=== PATIENT | male | born 1970 | race Two or more races ===

== ENCOUNTER 2019-04-12 07:46 | Inpatient (IN) | payer OTHER ==
[~2019-04-12] VITALS: Ht 167.6 cm; Wt 90.7 kg
[2019-04-12] VITALS (17 sets, daily range): BP systolic 110–157; BP diastolic 64–105
[2019-04-12] MEDS ORDERED: IV NS 0.9% 1,000 ML BAG IV ONE (08:00)
[2019-04-12 08:10] LABS: BASOPHILS % (AUTO) 0.4 % (0.0-2.0); EOSINOPHILS % (AUTO) 0.1 % (0.0-6.0); HEMATOCRIT 51 % (39-51); HEMOGLOBIN 17.9 g/dL (13.5-17.5); LYMPHOCYTES # (AUTO) 1.2 /CMM (0.8-4.8); LYMPHOCYTES % (AUTO) 14.5 % (20.0-44.0); MEAN CORPUSCULAR HGB CONC 35 g/dl (31.0-36.0); MEAN CORPUSCULAR VOLUME 88 fL (80-96); MONOCYTES # (AUTO) 0.2 /CMM (0.1-1.30); MONOCYTES % (AUTO) 2.5 % (2.0-12.0); NEUTROPHILS # (AUTO) 6.9 /CMM (1.8-8.9); NEUTROPHILS % (AUTO) 82.5 % (43.0-81.0); PLATELET COUNT (AUTO) 234 /CMM (150-450); RED BLOOD CELL COUNT(AUTO) 5.82 MIL/uL (4.5-6.0); WHITE BLOOD COUNT (AUTO) 8.4 K/uL (4.3-11.0)
--- NOTE | 2019-04-12 08:23 | NUR ---
PATIENT AWAKE ALERT NON DISTRESS BS CHECKED DONE AND FILED [employer] @ BEDSIDE FOR OK TO BOOK LAB DRAWS DONE BASIC LAB CONTINUE TO MONITOR
[2019-04-12 09:07] LABS: CALCIUM, SERUM 9.7 mg/dL (8.5-10.1); CARBON DIOXIDE 22 mmol/L (21-32); CHLORIDE 103 mmol/L (98-107); CREATININE 0.8 mg/dL (0.6-1.3); UREA NITROGEN, BLOOD 9 mg/dL (7-18)
[2019-04-12 09:08] LABS: GLUCOSE 359 mg/dL (74-106)
[2019-04-12 09:09] LABS: SODIUM SERUM 142 mmol/L (136-145)
[2019-04-12] MEDS ORDERED: INSULIN REGULAR, HUMAN 100 UNIT/ML 10 ML VIAL ONE (09:17)
[2019-04-12] MEDS ORDERED: IV NS 0.9% 500 ML BAG IV ONE (09:30)
[2019-04-12] MEDS ORDERED: INSULIN REGULAR, HUMAN 100 UNIT/ML 10 ML VIAL IV ONE (09:30)
--- NOTE | 2019-04-12 10:14 | NUR ---
PATIENT AWAKE ALERT NOTED NO NAUSEA AND VOMIT VITALS TAKEN AND FILED MONITOR BS
[2019-04-12 11:02] LABS: POTASSIUM 3.7 mmol/L (3.5-5.1)
[2019-04-12 11:03] LABS: CALCIUM, SERUM 8.4 mg/dL (8.5-10.1); CREATININE 0.7 mg/dL (0.6-1.3)
[2019-04-12 11:57] LABS: ABG BASE EXCESS -3.5 mmol/L; ABG OXYGEN SATURATION 87.6 % (92.0-98.5); ABG PCO2 34.8 mmHg (35.0-45.0); ABG PO2 51.1 mmHg (75.0-100.0); COHb 0.6 % (0.5-1.5); MetHb 0.4 % (0.0-1.5); O2Hb 86.7 % (94.0-97.0); SITE, ABG LEFT ARM; VENT MODE, BG RA
--- NOTE | 2019-04-12 12:02 | NUR ---
REQUESTED ICU BED FOR PT
[2019-04-12] MEDS ORDERED: METF-440 PO (12:12)
--- NOTE | 2019-04-12 12:21 | NUR ---
CALLED [facility], PAGED GEE MARTIN
[2019-04-12] MEDS ORDERED: POTASSIUM CL. PREMIX PERIPHER. 50 ML ONE (12:27)
[2019-04-12] MEDS ORDERED: INSULIN REGULAR, HUMAN 100 UNIT in IV NS 0.9% 99 ML IV PRN ×4 (12:30→14:00)
[2019-04-12] MEDS ORDERED: IV D5W 1,000 ML IV ONE (12:30)
[2019-04-12] MEDS: POTASSIUM CL. PREMIX PERIPHER. 50 ML IV SCH ×2 (12:31→14:28)
--- NOTE | 2019-04-12 12:36 | NUR ---
PATIENT AWAKE ALERT DENIES PAIN NO NAUSEA AND VOMIT ,REQUEST FOR ORAL FLUID OK PER MD
--- NOTE | 2019-04-12 12:42 | NUR ---
ICU 254
[2019-04-12] MEDS ORDERED: IV D5/ 0.9% NACL 1,000 ML IV ONE (13:00)
--- NOTE | 2019-04-12 13:29 | NUR ---
REPORT RECEIVED FROM [facility]
--- NOTE | 2019-04-12 13:33 | NUR ---
PATIENT REMAIN IN INSULIN DRIP 8 UNITS/HR INFUSING WELL NO EDEMA ,NO PAIN
--- NOTE | 2019-04-12 13:50 | NUR ---
GIVEN TO RECHECK BS 222 REPORT GIVEN TO EDINSON CANTU ,
[2019-04-12] MEDS ORDERED: IV D5/ 0.9% NACL 1,000 ML IV PRN (14:00)
[2019-04-12] MEDS ORDERED: HYDROCODONE/APAP 5/325MG 1 EACH TABLET PO PRN (14:00)
[2019-04-12] MEDS ORDERED: Z GUARD REMEDY 2 OZ OINT TP PRN (14:00)
[2019-04-12] MEDS ORDERED: ONDANSETRON HCL/PF 4 MG/2 ML VIAL IVP PRN (14:00)
--- NOTE | 2019-04-12 14:00 | NUR ---
SENIOR CREDIT ANALYST NOTES RECEIVED PATIENT FROM ED IN CUSTODY WITH 2 [employer] OFFICERS. PATIENT A/O X4 TAMAZIGHT SPEAKING UNDERSTANDS EMIRATI. TRANSFER VIA GURNEY WITH ACLS PROTOCOL AMBULATORY TO BED. NO SIGNS OR SYMPTOMS OF RESPIRATORY DISTRESS OR PAIN NOTED.SINUS RHYTHM ON MONITOR VITALS 68615 TEMP 98.1 HR 92 O2 97% ON ROOM AIR WEIGHT 188 LBS. SKIN INTACT NO PHOTOS TAKEN . IV TO RAC # 20 WITH REGULAR INSULIN RUNNING @ 8 UNITS R HAND # 20 GAUGE RUNNING D5NS @ 100 ML/HR AND K+ RUNNING @ 20 ML/HR. GEE MARTIN STUDENT [employer] JUDGE AT BEDSIDE ASSESSING PATIENT . ORIENTED TO ROOM AND CALL SYSTEM. BED IN LOW LOCKED POSITION SIDE RAILS UP X2. WILL CONT TO MONITOR ACCORDINGLY
[2019-04-12 14:45] LABS: CALCIUM, SERUM 8.3 mg/dL (8.5-10.1); CREATININE 0.7 mg/dL (0.6-1.3); MAGNESIUM 1.9 mg/dL (1.8-2.4); PHOSPHORUS 2.8 mg/dL (2.5-4.9); POTASSIUM 3.4 mmol/L (3.5-5.1)
[2019-04-12] MEDS: ENOXAPARIN SODIUM 40 MG/0.4 ML DISP.SYRIN SQ SCH (15:14)
[2019-04-12] MEDS ORDERED: BLOOD SUGAR DIAGNOSTIC 1 EACH STRIP IN ONE (16:00)
[2019-04-12] MEDS ORDERED: INSULIN REGULAR, HUMAN 100 UNIT/ML 3 ML VIAL SQ PRN (16:00)
[2019-04-12] MEDS ORDERED: *INSULIN REGULAR(HUMULIN R)HUM 100 UNIT/ML VIAL SQ PRN (16:00)
[2019-04-12] MEDS ORDERED: DEXTROSE 50%-WATER 50 ML DISP.SYRIN IV PRN (16:00)
--- NOTE | 2019-04-12 16:30 | NUR ---
NEW ORDERS PLACED BY GEE MARTIN D/Prela INSULIN AND D5NS START ON SLIDING SCALE
[2019-04-12] MEDS: BLOOD SUGAR DIAGNOSTIC 1 EACH STRIP VI SCH ×2 (17:47→22:07)
[2019-04-12] MEDS: INSULIN LISPRO/ASPART 100 UNIT/ML CARTRIDGE SQ SCH (17:54)
[2019-04-12 17:58] LABS: CALCIUM, SERUM 8.3 mg/dL (8.5-10.1); CREATININE 0.6 mg/dL (0.6-1.3); PHOSPHORUS 3.2 mg/dL (2.5-4.9); POTASSIUM 3.6 mmol/L (3.5-5.1)
--- NOTE | 2019-04-12 18:47 | NUR ---
NET WEB DEVELOPER NOTES PATIENT SLEEPING A/O X4 NO SIGNS OR SYMPTOMS OF RESPIRATORY DISTRESS SATURATING 98% ON ROOM AIR NO C/O PAIN NOTED . IN CUSTODY WITH [employer] 2 OFFICERS AT BEDSIDE. NORMAL SINUS ON MONITOR SKIN INTACT. IV RAC # 20 GAUGE SL R HAND # 20 GAUGE SL. ABLE TO MAKE NEEDS KNOWN AND ALL MET BY STAFF. SAFETY PRECAUTION IN PLACE BED IN LOW LOCKED POSITION . CALL LIGHT WITHIN REACH WILL ENDORSE TO NOC.
[2019-04-12] MEDS ORDERED: INSULIN GLARGINE, 100 UNIT/ML CARTRIDGE SQ SCH (22:00)
[2019-04-12 22:27] LABS: CALCIUM, SERUM 8.6 mg/dL (8.5-10.1); CREATININE 0.8 mg/dL (0.6-1.3); PHOSPHORUS 3.1 mg/dL (2.5-4.9); POTASSIUM 3.6 mmol/L (3.5-5.1)
[2019-04-13] VITALS (25 sets, daily range): BP systolic 111–153; BP diastolic 64–96
[2019-04-13 04:18] LABS: BASOPHILS % (AUTO) 0.4 % (0.0-2.0); EOSINOPHILS % (AUTO) 1.1 % (0.0-6.0); HEMATOCRIT 44 % (39-51); HEMOGLOBIN 15.5 g/dL (13.5-17.5); LYMPHOCYTES # (AUTO) 2.8 /CMM (0.8-4.8); LYMPHOCYTES % (AUTO) 42.2 % (20.0-44.0); MEAN CORPUSCULAR HGB CONC 35 g/dl (31.0-36.0); MEAN CORPUSCULAR VOLUME 87 fL (80-96); MONOCYTES # (AUTO) 0.4 /CMM (0.1-1.30); MONOCYTES % (AUTO) 6.6 % (2.0-12.0); NEUTROPHILS # (AUTO) 3.3 /CMM (1.8-8.9); NEUTROPHILS % (AUTO) 49.7 % (43.0-81.0); PLATELET COUNT (AUTO) 202 /CMM (150-450); RED BLOOD CELL COUNT(AUTO) 5.05 MIL/uL (4.5-6.0); WHITE BLOOD COUNT (AUTO) 6.6 K/uL (4.3-11.0)
[2019-04-13 04:29] LABS: ALBUMIN 3.3 g/dL (3.4-5.0); BILIRUBIN,TOTAL 0.6 mg/dL (0.2-1.0); CALCIUM, SERUM 8.5 mg/dL (8.5-10.1); CREATININE 0.8 mg/dL (0.6-1.3); PHOSPHORUS 2.7 mg/dL (2.5-4.9); POTASSIUM 3.4 mmol/L (3.5-5.1); TOTAL PROTEIN, SERUM 6.7 g/dL (6.4-8.2)
[2019-04-13 05:07] LABS: THYROID STIMULATING HORMONE 0.898 uIU/mL (0.358-3.74)
--- NOTE | 2019-04-13 07:30 | NUR ---
RN NOTE: RECEIVED PATIENT IN BED, AWAKE, ALERT AND VERBALLY RESPONSIVE. BREATHING EVENLY AND UNLABORED SATURATING 97% IN ROOM AIR. DENIED ANY PAIN. AFEBRILE. SKIN WARM TO TOUCH. HOB ELEVATED. ON SITE PROMOTION AGENT SR HR= 65. (R) AC AND (R) HAND IV SITE NOTED PATENT AND INTACT. BED ALARMED AND LOCKED AT ALL TIMES AND ON LOWEST POSITION. CALL LIGHT WITHIN REACH. NEEDS ANTICIPATED.
[2019-04-13] MEDS: BLOOD SUGAR DIAGNOSTIC 1 EACH STRIP VI SCH ×2 (07:59→11:51)
[2019-04-13] MEDS: INSULIN LISPRO/ASPART 100 UNIT/ML CARTRIDGE SQ SCH ×2 (08:01→11:56)
[2019-04-13] MEDS: ENOXAPARIN SODIUM 40 MG/0.4 ML DISP.SYRIN SQ SCH (09:12)
[2019-04-13] MEDS: POTASSIUM CL. PREMIX PERIPHER. 50 ML IV SCH ×2 (09:32→10:33)
[2019-04-13 09:39] LABS: ABG BASE EXCESS -1.3 mmol/L; ABG OXYGEN SATURATION 94.5 % (92.0-98.5); ABG PCO2 34.9 mmHg (35.0-45.0); ABG PH 7.425 (7.350-7.450); ABG PO2 71.5 mmHg (75.0-100.0); AaDO2 36.4 mmHg; COHb 1.1 % (0.5-1.5); MetHb 0.5 % (0.0-1.5); SITE, ABG Left Radial; VENT MODE, BG ROOM AIR
--- NOTE | 2019-04-13 11:18 | NUR ---
RN NOTE: SEEN AND EXAMINED BY DR. CEJA AND PER MD, PATIENT CAN BE DISCHARGE TO HOME TODAY. PATIENT MADE AWARE. PER PATIENT, HE WILL BE SEEING HIS PRIMARY CARE PHYSICIAN ONCE HE GETS DISCHARGE FROM THE HOSPITAL.
--- NOTE | 2019-04-13 12:47 | NUR ---
RN NOTE: CALLED AND PAGED DR. CEJA VIA [employer] EXCHANGE REGARDING THE PATIENT'S REQUEST IF HE CAN GIVE A PRESCRIPTION FOR METFORMIN. PER PATIENT, HE RUN OUT OF PRESCRIPTION ALREADY. AWAITING FOR MD'S RESPONSE. PATIENT'S 2 BROTHERS WERE AT THE BEDSIDE. PATIENT ATE 100% OF HIS LUNCH MEAL.
--- NOTE | 2019-04-13 13:07 | NUR ---
RN NOTE: CALLED AND SPOKE WITH RUPINDER, PHARMACIST FROM [facility] AT [facility] [place] [address] (TEL. #: [phone]) REGARDING THE TELEPHONE PRESCRIPTION ORDER FROM DR. CEJA FOR METFORMIN 500 MG PO BID X 1 MONTH. PATIENT WAS INFORMED TO PICK-UP HIS PRESCRIPTION AT THE [facility] AT [place] (HIS [facility] OF CHOICE).
--- NOTE | 2019-04-13 13:29 | NUR ---
RN NOTE: EXIT CARE WAS DONE AND PATIENT WAS GIVEN INSTRUCTIONS REGARDING HIS DISCHARGE. EMPHASIZED TO PATIENT THE IMPORTANCE OF TAKING HIS MEDICATION (METFORMIN) TO MANAGE HIS BLOOD SUGAR. PATIENT VERBALIZED UNDERSTANDING. AND REMINDED HIM TO GO TO THE [facility] AT [place], [place] FOR HIS PRESCRIPTION. (R) AC AND (R) HAND IV SITE WAS REMOVED, APPLIED PRESSURE AND COVERED WITH DRY GAUZE AND SECURED WITH TAPE. PATIENT'S 2 BROTHERS WERE PRESENT AT THE BEDSIDE.
--- NOTE | 2019-04-13 13:35 | NUR ---
RN NOTE: PATIENT WAS WALKED OUT TO THE HOSPITAL MAIN LOBBY WITH ALL HIS BELONGINGS WITH HIM AND THE ACCOMPANIED BY HIS BROTHER [place] AND ANOTHER BROTHER . PAPERWORK WAS RELEASED WITH THE PATIENT UPON DISCHARGE. PATIENT HAS NO QUESTION REGARDING HIS DISCHARGE.
== END 2019-04-13 13:40 | disposition home or self-care (01) | DRG 639 ==
LOC: ER 07:49 → ICU 12:58
PROVIDERS: ADMIT Nurse Practitioner Acute Care; ATTEND Family Medicine
DX: E11.10 Type 2 diabetes mellitus with ketoacidosis without coma (principal); E86.1 Hypovolemia; Z91.19 Patient's noncompliance with other medical treatment and regimen; Z83.3 Family history of diabetes mellitus; Z79.84 Long term (current) use of oral hypoglycemic drugs; F10.129 Alcohol abuse with intoxication, unspecified; Y90.9 Presence of alcohol in blood, level not specified
CPT/HCPCS: 36415; 36600; 80048-TC; 80053-TC; 80061-TC; 82010-TC; 82803-TC; 82962-TC; 83735-TC; 84100-TC; 84443-TC; 84484-TC; 85025-TC; 87081-TC; 93307-TC; G0378; J1650; J1815; J3480; J3490; J7030; J7042